=== PATIENT | female | born 2000 | race Caucasian/White ===

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

== ENCOUNTER → 2019-08-03 | Outpatient (CLI) | payer OTHER ==
[~2019-08-03] MED LIST changes: +BENZ100C PO; +METR500T PO; +NAPR-683 PO; -NAPR500T PO; +PRED20TA PO; +PRED50TA PO; +PROAIR RESPICL90 MCG IH
--- NOTE | 2019-08-03 11:29 | KCIC ---
Thoracic and lumbar spine radiographs 08/03/2019 CLINICAL HISTORY: Mid and low back pain. History of fall 2 years ago. AP, two lateral and swimmer's lateral digital radiographs of the thoracic spine and AP and two lateral digital radiographs of the lumbar spine were obtained. Surgical clips are seen within the right upper quadrant abdomen consistent with a cholecystectomy. Minimal S-shaped curvature of the thoracolumbar spine is seen. An old compression deformity of the superior endplate of the T4 vertebral body is seen. No retropulsion of bone fragments into the central spinal canal seen. No acute fracture or subluxation of the thoracic or lumbar vertebrae is seen. Mild degenerative changes are seen involving the facet joints of the lower lumbar spine. IMPRESSION: No acute fracture or subluxation of the thoracic or lumbar vertebrae is seen. Electronically signed by: Zackary Garner MD (08/03/2019 11:26 AM) [id number]
== END | disposition home or self-care (01) ==
LOC: KCIC 09:27
PROVIDERS: ATTEND Family Medicine
DX: M54.41 Lumbago with sciatica, right side (principal); M54.42 Lumbago with sciatica, left side; S22.040S Wedge compression fracture of fourth thoracic vertebra, sequela; X58.XXXS Exposure to other specified factors, sequela
CPT/HCPCS: 72072; 72100